=== PATIENT | female | born 1955 | race American Indian/Alaskan Native ===

== ENCOUNTER 2021-08-11 09:25 | Outpatient (CLI) | payer BC ==
--- NOTE | 2021-08-11 11:48 | Magnetic Resonance Report ---
MR LE joint LT wo con INDICATION / CLINICAL INFORMATION: LEFT KNEE PAIN. TECHNIQUE: Multiplanar, multisequence MR images were obtained. Routine MRI left knee obtained without IV contras t COMPARISON: None available. FINDINGS: There is moderate to severe tricompartmental degenerative changes of the left knee primarily involvin g the medial femorotibial patellofemoral compartments. There is a large knee effusion with mild synov itis. There is a macerated tear involving the anterior horn body and posterior horn of the medial men iscus. The lateral meniscus demonstrates some free edge fraying along the anterior horn in mid body o f the medial meniscus. The cruciate and collateral ligaments are intact. There is some mucoid degener ation of the ACL, likely chronic. The extensor apparatus is grossly intact. 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 Macerated tear involving the medial meniscus, as above. Signer Name: Jose Miguel Willson MD Signed: 08/11/2021 11:44 AM Workstation Name: [id number]
== END 2021-08-11 09:26 | disposition home or self-care (01) ==
LOC: MRI 09:25
PROVIDERS: ATTEND Orthopaedic Surgery
DX: S83.242A Other tear of medial meniscus, current injury, left knee, initial encounter (principal); M17.11 Unilateral primary osteoarthritis, right knee; M65.861 Other synovitis and tenosynovitis, right lower leg; M25.461 Effusion, right knee; X58.XXXA Exposure to other specified factors, initial encounter; Y93.89 Activity, other specified; Y92.89 Other specified places as the place of occurrence of the external cause; Y99.8 Other external cause status
CPT/HCPCS: 73721